=== PATIENT | male | born 1945 | race Caucasian/White ===

== ENCOUNTER 2020-02-09 09:54 | Emergency (ER) | payer OTHER ==
[~2020-02-09] VITALS: Ht 180.3 cm; Wt 77.1 kg
--- NOTE | ~2020-02-09 | EMS ---
[address] [address] EMS Patient Care Report Name: RAGHU PRAKASH Room #: PRE [facility]..#: [id number] Admission: Attend Phys: Discharge: Date of : 45 Report #: [id number] THIS REPORT FOR: //name// Report Transmitted: 02/09/2020 09:28 EMS Care Summary [place], [place]/[facility] Incident [id number] @ 02/09/2020 09:30 Incident Location [address] [place] [address] LIVING Patient RAGHU PRAKASH Male, 74 Years 1945 Patient Address Patient History Dementia,Diabetes,Hypertension (HTN),Depression,Hernia (Abdominal), Patient Allergies No known allergies, Patient Medications Lisinopril, Metformin, Acetaminophen, Seroquel, Mirtazapine, Chief Complaint NONE Disposition Transported No Lights/Mcdaniels Dispatch Reason Sick Person Transported To [facility] Narrative RESPONDED TO [facility]. UPON ARRIVAL PT FOUND SITTING IN CHAIR ALERT TO BASELINE X1. [place] STAFF REPORT PT HAS NOT BEEN EATING WELL FOR THE LAST WEEK AND A PHYSICIAN HAS ORDERS FOR PT TO GET LABS DONE. PT AMBULATES ON HIS OWN TO COT. PT HAS NO COMPLAINTS WHEN ASKED. PT VITALS OBTAINED. PT TRANSPORTED TO [facility] WITH NO CHANGE IN CONDITION. PT WALKS FROM COT TO BED AND HANDRAILS UP. REPORT GIVEN TO NURSE. [address] [address] EMS Patient Care Report Name: RAGHU PRAKASH Room #: PRE [facility]#: [id number] Admission: Attend Phys: Discharge: Date of : 45 Report #: [id number] Initial Vitals @09:46P: 95,R: 16,BP: 137/75,CO: 3,SpO2: 93, @09:43P: 93,R: 16,BP: 134/77,Pain: 0/10,GCS: 14,Glucose: 162,CO: 1,SpO2: 94,Revised Trauma: 12, Assessments @09:39MENTAL:Person Oriented,SKIN:HEENT:Head/Face: No Abnormalities,Neck/Airway: No Abnormalities,LUNG SOUNDS:General: No Abnormalities,Left Upper: No Abnormalities,Right Upper: No Abnormalities,Left Lower: No Abnormalities,Right Lower: No Abnormalities,ABDOMEN:General: No Abnormalities,Left Upper: No Abnormalities,Right Upper: No Abnormalities,Left Lower: No Abnormalities,Right Lower: No Abnormalities,PELVIS//GI:No Abnormalities,EXTREMITIES:Left Arm: No Abnormalities,Right Arm: No Abnormalities,Left Leg: No Abnormalities,Right Leg: No Abnormalities,PULSE:NEURO:No Abnormalities,@09:43MENTAL:Person Oriented,SKIN:No Abnormalities,HEENT:Head/Face: No Abnormalities,Eyes: No Abnormalities,Neck/Airway: No Abnormalities,LUNG SOUNDS:General: No Abnormalities,Left Upper: No Abnormalities,Right Upper: No Abnormalities,Left Lower: No Abnormalities,Right Lower: No Abnormalities,ABDOMEN:General: No Abnormalities,Left Upper: No Abnormalities,Right Upper: No Abnormalities,Left Lower: No Abnormalities,Right Lower: No Abnormalities,PELVIS//GI:No Abnormalities,EXTREMITIES:Left Arm: No Abnormalities,Right Arm: No Abnormalities,Left Leg: No Abnormalities,Right Leg: No Abnormalities,PULSE:NEURO:No Abnormalities, Impression Need for continuous medical supervision Procedures @09:39ALS AssessmentResponse: UnchangedSucceeded Timeline 09:28,Call Received 09:28,Dispatch Notified 09:30,Dispatched 09:31,En Route 09:38,On Scene 09:39,At Patient 09:39,ALS Assessment,Response: UnchangedSucceeded, 09:43,BP: 134/77 M,PULSE: 93,RR: 16 R,SPO2: 94 Ox,ETCO2: ,B,PAIN: 0,GCS: 14, 09:43,Depart Scene 09:46,BP: 137/75 M,PULSE: 95,RR: 16 R,SPO2: 93 Ox,ETCO2: ,BG: ,PAIN: ,GCS: , 09:51,At Destination 10:03,Call Closed [address] [address] EMS Patient Care Report Name: RAGHU PRAKASH Room #: PRE [facility].#: [id number] Admission: Attend Phys: Discharge: Date of : 45 Report #: [id number] Disclaimer v1.1 Copyright 2020 [employer] This EMS Care Summary contains data elements from the applicable legal record (which may be displayed differently). It is designed to provide pertinent information for the following purposes: continuity of care, clinical quality, and state data reporting. The complete legal record is available to ED staff and administrators of the receiving hospital in [facility]'s Patient Tracker. All data is provided "as is."
[~2020-02-09 09:54] MED LIST: ACETAMINOPHEN325 MG PO; B12INJ IM; CELEXA 10 MG TA10 M1 PO; CLEOCIN HCL150 MG PO; METFORMIN HCL500 MG PO; SEROQUEL 25 MG25 M1 PO
[2020-02-09] MEDS ORDERED: LIPITOR40 MG PO (10:04)
[2020-02-09] MEDS ORDERED: LISINOPRIL10 MG PO (10:05)
[2020-02-09] MEDS ORDERED: MIRTAZAPINE15 M2 PO (10:05)
[2020-02-09] MEDS ORDERED: VITAMIN D350 MC3 PO (10:06)
[2020-02-09 10:24] LABS: ABSOLUTE NEUTROPHILS 8.8 thou/uL (1.4-8.2); BASOPHILS 0.3 % (0.0-2.0); EOSINOPHILS 0.4 % (0.0-3.0); HEMATOCRIT 33.4 % (42.0-52.0); HEMOGLOBIN 11.2 gm/dL (14.0-18.0); LYMPHOCYTES 8.5 % (24.0-44.0); MCH 30.5 pg (26.0-34.0); MCHC 33.5 g/dL (28.0-37.0); MCV 90.9 fL (80.0-100.0); MONOCYTES 9.8 % (1.0-8.0); PLATELET COUNT 454 thou/uL (150-400); RBC 3.68 mil/uL (4.50-6.00); RDW 14.2 % (10.5-14.5); WBC 10.8 thou/uL (4.0-11.0)
[2020-02-09 10:39] LABS: CALCIUM 9.2 mg/dL (8.5-10.1); POTASSIUM 4.3 mmol/L (3.5-5.1)
[2020-02-09 10:45] LABS: DIRECT BILIRUBIN 0.2 mg/dL (<0.1-0.2); MAGNESIUM 1.2 mg/dL (1.8-2.4); TOTAL BILIRUBIN 0.4 mg/dL (0.2-1.0); TOTAL PROTEIN 7.4 g/dL (6.4-8.2)
[2020-02-09 13:29] LABS: URINE BLOOD 2+ (Negative); URINE CLARITY SL CLOUDY; URINE COLOR YELLOW; URINE GLUCOSE-RANDOM* NEGATIVE (Negative); URINE KETONES TRACE (Negative); URINE LEUKOCYTES-REFLEX NEGATIVE (Negative); URINE NITRITE-REFLEX NEGATIVE (Negative); URINE PROTEIN (DIPSTICK) 2+ (Negative); URINE SPECIFIC GRAVITY >= 1.030 (1.005-1.035)
[2020-02-09 13:31] LABS: ICTOTEST (BILI CONFIRMATORY) Negative (Negative); URINE BILIRUBIN NEGATIVE (Negative)
[2020-02-09 13:38] LABS: SQUAMOUS >10 Many /LPF (0-3)
[2020-02-09 13:40] LABS: URINE WBC-REFLEX 6-15 Few /HPF (0-5)
[2020-02-09 13:41] LABS: RENAL EPITHELIAL CELLS 0-3 Few /LPF (None Seen); TRANSITIONAL EPITHEL CELL 0-3 Few /LPF (None Seen); WBC CLUMPS Few (None Seen)
[2020-02-09 13:42] LABS: CASTS None Seen /LPF (None Seen); CRYSTALS None Seen /LPF (None Seen)
[2020-02-09] MEDS ORDERED: KEFLEX500 M1 PO (13:45)
[2020-02-09 13:48] VITALS: BP 130/68
== END 2020-02-09 13:48 ==
LOC: ER 09:54
PROVIDERS: Emergency Medicine
DX: N39.0 Urinary tract infection, site not specified (principal); R68.81 Early satiety; F03.90 Unspecified dementia, unspecified severity, without behavioral disturbance, psychotic disturbance, mood disturbance, and anxiety; E11.9 Type 2 diabetes mellitus without complications; I10 Essential (primary) hypertension; F17.210 Nicotine dependence, cigarettes, uncomplicated; Z79.899 Other long term (current) drug therapy

== ENCOUNTER 2020-02-12 12:44 | Inpatient (IN) | payer OTHER ==
[~2020-02-12] VITALS: Ht 180.3 cm; Wt 93.1 kg
[~2020-02-12 12:44] MED LIST changes: +KEFLEX500 M1 PO; +LIPITOR40 MG PO; +LISINOPRIL10 MG PO; +MIRTAZAPINE15 M2 PO; +VITAMIN D350 MC3 PO
[2020-02-12 12:51] VITALS: BP 121/57
[2020-02-12 13:39] LABS: ABSOLUTE NEUTROPHILS 10.2 thou/uL (1.4-8.2); BASOPHILS 0.1 % (0.0-2.0); EOSINOPHILS 0.3 % (0.0-3.0); HEMATOCRIT 32.7 % (42.0-52.0); HEMOGLOBIN 10.7 gm/dL (14.0-18.0); LYMPHOCYTES 7.4 % (24.0-44.0); MCH 29.5 pg (26.0-34.0); MCHC 32.7 g/dL (28.0-37.0); MCV 90.3 fL (80.0-100.0); MONOCYTES 9.5 % (1.0-8.0); PLATELET COUNT 485 thou/uL (150-400); POLYS 82.7 % (36.0-66.0); RBC 3.62 mil/uL (4.50-6.00); WBC 12.3 thou/uL (4.0-11.0)
[2020-02-12 13:50] LABS: CALCIUM 9.5 mg/dL (8.5-10.1); CREATININE 1.1 mg/dL (0.7-1.3); POTASSIUM 4.1 mmol/L (3.5-5.1)
[2020-02-12 13:56] LABS: ALBUMIN 2.9 g/dL (3.4-5.0); DIRECT BILIRUBIN 0.2 mg/dL (<0.1-0.2); TOTAL BILIRUBIN 0.5 mg/dL (0.2-1.0); TOTAL PROTEIN 7.4 g/dL (6.4-8.2)
[2020-02-12 15:56] LABS: URINE BILIRUBIN NEGATIVE (Negative); URINE BLOOD NEGATIVE (Negative); URINE CLARITY CLEAR; URINE COLOR YELLOW; URINE GLUCOSE-RANDOM* NEGATIVE (Negative); URINE KETONES 1+ (Negative); URINE LEUKOCYTES-REFLEX NEGATIVE (Negative); URINE NITRITE-REFLEX NEGATIVE (Negative); URINE PROTEIN (DIPSTICK) TRACE (Negative); URINE SPECIFIC GRAVITY <= 1.005 (1.005-1.035)
[2020-02-12 17:48] LABS: INR 1.1; PROTIME 11.6 Seconds (9.3-11.4)
[2020-02-12 18:07] VITALS: BP 121/64
[2020-02-12 18:16] VITALS: BP 121/64
[2020-02-12 19:22] VITALS: BP 113/66
[2020-02-12 19:40] LABS: FOLIC ACID 19.9 ng/mL (8.6-58.9)
[2020-02-12 19:41] LABS: MAGNESIUM 1.2 mg/dL (1.8-2.4); PHOSPHORUS 3.4 mg/dL (2.5-4.9)
[2020-02-12 23:11] LABS: URINE BILIRUBIN 1+ (Negative); URINE BLOOD TRACE (Negative); URINE CLARITY CLEAR; URINE COLOR YELLOW; URINE GLUCOSE-RANDOM* NEGATIVE (Negative); URINE KETONES 1+ (Negative); URINE LEUKOCYTES NEGATIVE (Negative); URINE NITRITE NEGATIVE (Negative); URINE PROTEIN (DIPSTICK) 1+ (Negative)
[2020-02-12 23:20] LABS: ICTOTEST (BILI CONFIRMATORY) Positive (Negative)
[2020-02-12 23:22] LABS: AMP/METHAMP Negative (Negative); BARBITURATES Negative (Negative); BENZODIAZEPINES Negative (Negative); CASTS None Seen /LPF (None Seen); COCAINE Negative (Negative); METHADONE Negative (Negative); MUCUS None Seen strn/LPF (None Seen); OPIATES Negative (Negative); PCP Negative (Negative); SQUAMOUS None Seen /LPF (0-3); URINE WBC None Seen /HPF (0-5)
[2020-02-12 23:23] LABS: BACTERIA None Seen /HPF (None Seen); URIC ACID CRYSTALS >10 Many /LPF (None Seen); URINE RBC None Seen /HPF (0-2)
--- NOTE | 2020-02-13 04:31 | NUR ---
PT HAS STAT CT CHEST/ABD/PELVIS W/O CONTRAST PER DR TREJO. THIS WAS NOT DONE PRIOR TO BEGINNING OF SHIFT. ONCALL MORTGAGE FUNDER NOTIFIED IF OK TO DO PRIOR TO MORNING. ONCALL MORTGAGE FUNDER AGREED TO HAVE SCAN DONE PRIOR TO CHANGE OF SHIFT. NURSING CALLED CT SCAN IN READINESS TO BRING PT. HOSPITAL WELLNESS COORDINATOR VOICED THAT SCAN HAS TO BE RESCHEDULED TO ABOUT 24HRS AND HAS TO ORDERED WITH IV CONTRAST IN ADDITION TO ORAL CONTRAST TO VIEW MALIGNANCY. MORTGAGE FUNDER ONCKEITH NOTIFIED AND AGREED THAT ORDER BE CHANGED PER REQUEST. CT SCAN REORDERED WITH CONTRAST FOR 12 NOON. WILL CONTINUE TO MONITOR.
[2020-02-13 05:09] LABS: ABSOLUTE NEUTROPHILS 11.7 thou/uL (1.4-8.2); BASOPHILS 0.4 % (0.0-2.0); EOSINOPHILS 0.2 % (0.0-3.0); HEMATOCRIT 32.2 % (42.0-52.0); HEMOGLOBIN 10.4 gm/dL (14.0-18.0); LYMPHOCYTES 5.9 % (24.0-44.0); MCH 29.7 pg (26.0-34.0); MCHC 32.5 g/dL (28.0-37.0); MCV 91.3 fL (80.0-100.0); MONOCYTES 8.7 % (1.0-8.0); PLATELET COUNT 488 thou/uL (150-400); POLYS 84.8 % (36.0-66.0); RBC 3.52 mil/uL (4.50-6.00); RDW 13.9 % (10.5-14.5); WBC 13.7 thou/uL (4.0-11.0)
[2020-02-13 05:26] LABS: ALBUMIN 2.8 g/dL (3.4-5.0); MAGNESIUM 1.3 mg/dL (1.8-2.4); PHOSPHORUS 2.9 mg/dL (2.5-4.9); POTASSIUM 3.9 mmol/L (3.5-5.1)
[2020-02-13 06:18] LABS: TOTAL BILIRUBIN 0.7 mg/dL (0.2-1.0)
--- NOTE | 2020-02-13 06:22 | NUR ---
ASSUMMED PT'S CARE BEGINNING OF HS SHIFT. PT WAS A NEW ADMIT PRIOR TO BEGINNINNG OF SHIFT. HS RN COMPLETED PT'S ADM HX AND ASSESSMENT. PT IS ALERT AND ORIENTED X1. CONFUSED. FORGETFUL. IMPULSIVE. CAN GET AGITATED. PT PROVIDED ADM HX. UNSURE HOW MUCH IS ACCURATE. PT AMBULATING INDPENDENTLY. PT DC'D IV PRIOR TO BEGINNING OF SHIFT. NEW IV STARTED TO LFA 22G. MULTIPLE IV ABX GIVEN THIS SHIFT. SEE EMAR FOR MEDS. PT ON CIWA PROTOCOL. PRN ATIVAN GIVEN THIS SHIFT. PT INCONTINENT OF BLADDER. VOIDED SEVERALLY ALL OVER THE FLOW. SEEMS TO HAVE SOME URGENCY ALSO. PT ELOPEMENT RISK. MONITORING CLOSELY. VOICED WANTING TO SNEAK OUT FOR CIGARETTE. NPO. REODERED CT SCAN WITH CONTRAST PER CT STAFF REQUEST.PT HAS A HARDENER HELPER THAT HAS BEEN ATTACHED HIS CHART INCASE OF DC. WILL CONTINUE TO MONITOR.
--- NOTE | 2020-02-13 07:45 | EKG ---
[facility] [place] [address] ELECTROCARDIOGRAM REPORT Name: RAGHU PRAKASH Room #: 454-P ADM IN M.R.#: [id number] Admission: 02/12/20 Attend Phys: Sheila Yañez MD Discharge: Date of : 45 Report #: [id number] THIS REPORT FOR: cc: Carlos Manuel Sierra MD, Mark A. MD Lundgren, Craig H. MD [facility] ~ THIS REPORT FOR: //name// [facility] ED Test Date: 2020-02-12 Test Time: 13:12:19 Pat Name: RAGHU PRAKASH Department: Room: [facility] Gender: M Silver Miner: [facility] : 1945 Requested By: Kendell Jimenez Order Number: [id number] : Thiago Aguirre Measurements Intervals [place] Rate: 97 P: 28 WI: 164 QRS: -38 QRSD: 98 T: 60 QT: 342 QTc: 435 Interpretive Statements Sinus rhythm Atrial premature complex Left axis deviation Borderline T wave abnormalities Compared to ECG 06/25/2008 18:46:16 Atrial premature complex(es) now present Left-axis deviation now present Sinus tachycardia no longer present T-wave abnormality still present Electronically Signed On 02-13-2020 7:45:21 TRAWL NET MAKER by Thiago Aguirre [email or web address] <ELECTRONICALLY SIGNED> By: Thiago Aguirre MD, FACC 02/13/20 0745 11 Thiago Aguirre MD, FAC /EPI
[2020-02-13 08:00] VITALS: BP 138/46
--- NOTE | 2020-02-13 13:34 | NUR ---
Assumed pt care at 7am.Pt in and out of bed wandering in the hallways.Assisted back to room several times but refused to stay in bed and urinated allover the floor.Lorazepam iv given as ordered.Dr Costello aware of pt situation.Pt pulled piv and was replaced by iv team.Pt in bed sleeping at present afer complete bed change.Will continue to monitor.
--- NOTE | 2020-02-13 16:23 | NUR ---
PT ADMITTED RLATED TO NECK MASS. CM REVIEWED CAHRT AND SPOKE WITH CARE TEAM. PT'S SPOUSE MERCEDEZ PRAKASH CALLED THIS DAY AND INDICATED THAT SHE IS THE DPOA WE HAVE HER DTR LISTED DPOA ALL OVER THE CHART. CM TO CLARIFY. SHE INDICATED THAT PT RESIDES AT [facility]. CM TO CLARIFY PRIOR LEVEL OF CARE [place], [place], SNF, LTC. PT HAD BEEN USING A FWW TO ASSSIT WITH MOBILITY SINCE ADMISSION AND HAD BEEN WANDERING AROUND UNIT THIS DAY. DR. BARROW HAD SEEN PT AND HAD ROSAURA MENTION OF BIOPSY IN IR. CM TO FOLLOW INDICATED WITH DC PLANNING.
[2020-02-13 19:50] VITALS: BP 119/67
[2020-02-13 23:06] LABS: HAV IgM AB (ANTI-HAV IgM) Negative (Negative); HEPATITIS B SURFACE AG Negative (Negative); HEPATITIS C VIRUS AB <0.1 (0.0-0.9)
[2020-02-14] VITALS (20 sets, daily range): BP systolic 68–173; BP diastolic 43–137
[2020-02-14 00:06] LABS: GLYCOHEMOGLOBIN (HGB A1C) 6.1 % (4.8-5.6)
--- NOTE | 2020-02-14 07:27 | NUR ---
Assumed pt care at 1900. A/OX2-3 very irritable/agitated with staff during cares. Asking numerous times for food and doesn't understand why he can't eat when explained to why he's NPO. Pt's impulsive on and off and keeps trying to get up,Top Polisher Dora contacted for med orders and orders implemented,with some relief noted. Pt on CIWA protocol score 9. Pt's NPO,oral suction set-up for increased oral secretions but pt resistant to have suction done. Pt's supposed to get CT of abd/chest/pelvis done still. Pt pulled IV out,reinserted on LUE with one attempt, IVF/Abts infusing w/o problems. Incontinent of bladder at [facility]. Fall precautions in place. Pt to be transfered to this shift.
--- NOTE | 2020-02-14 07:29 | HC ---
[facility] [place] [address] CONSULTATION Name: RAGHU PRAKASH Room #: 205-P [facility] IN .R.#: [id number] Admission: 02/12/20 Attend Phys: Sheila Yañez MD Discharge: Date of : 45 Report #: [id number] THIS REPORT FOR: cc: Carlos Manuel Sierra MD, Mark A. MD McKittrick, Richard James MD ~ REASON FOR CONSULTATION: Left neck mass on exam and CAT scan. HISTORY OF PRESENT ILLNESS: The patient is a 74-year-old man who may have early dementia, who is probably not a reliable historian, cannot tell me how much his weight is lost, but does talk about trouble with food or liquids pooling ____ with some dysphagia. In the CAT scan here, he was noted to have a left neck mass that is effaced in the submandibular gland medially and posteriorly with IJ compression. On the ENT doctor's exam, they showed that in the upper hypopharynx, there was a ballottable fullness on the left lateral pharyngeal wall obscuring the left piriform sinus. There appears to be some ulcerations on the posterior inferior aspect of this mass. The true vocal cords moved normally. No epiglottic edema or glottic edema was noted. He could not visualize the postcricoid space. The patient does seem to think he has lost weight. He denies really any significant pain, new breathing troubles, diarrhea, constipation, urinary troubles, skin rashes. PAST MEDICAL HISTORY: Appears to be notable for what sounds like diabetes, early dementia, hypertension, tobacco dependence, alcohol dependence. SOCIAL HISTORY: The patient is a resident of [facility]. It sound like he has not drank for at least some time, but still smoking up until prior to admission and has tried smoking here. FAMILY HISTORY: Noncontributory, SHONDA is ex-. PHYSICAL EXAMINATION: GENERAL: The patient appears his stated age. Mood pleasant, conversant. VITAL SIGNS: Height is 5 feet 11 inches, 180.3 cm. Weight 164 pounds or 74.6 kg. LUNGS: Have some central rhonchi that clear with cough. HEART: Regular rate. NECK: Does have the fullness in the left upper neck that appears to feel about 3-4 cm. ABDOMEN: Slightly obese, nontender. No masses. EXTREMITIES: Without clubbing, cyanosis. There is some trace edema. LABORATORY DATA: Here notable for slightly low albumin, BUN of 20, creatinine [address] [address] CONSULTATION Name: RAGHU PRAKASH Room #: 205-P [facility] IN [facility]#: [id number] Admission: 02/12/20 Attend Phys: Sheila Yañez MD Discharge: Date of : 45 Report #: [id number] 1.0. Transaminases normal. Albumin 2.8. White count 13.7, hemoglobin 10.4, platelets 488. B12, folate, TSH adequate. Hepatitis markers pending. MEDICATIONS: At this time in the hospital currently include insulin on a sliding scale, metronidazole q. 8 IV, Zosyn IV q. 8, vancomycin q. 12, ipratropium and albuterol respiratory therapy q. 4, flumazenil 0.2 mg p.r.n., lorazepam 1 mg q. 4 IV p.r.n., famotidine 20 mg daily IV. ASSESSMENT AND PLAN: 1. Left neck mass on CAT scan and on ENT exam and on physical exam externally, most suspicious for squamous cell cancer, but would need to await final tissue diagnosis to make sure this is cancer of what subtype. We will also need to clarify social situations as to whether the patient has support and understanding to undertake therapy if this is a malignancy. 2. Hypertension. Meds per others. 3. Possible respiratory infection and neck infection. Continue with multiple antibiotics. 4. Diabetes. Sliding scale insulin and Accu-Cheks. 5. Tobacco dependence. Encouraged cessation. 6. Alcohol dependence. Encouraged cessation. We will follow with you. <ELECTRONICALLY SIGNED> By: Olman Villafana MD 02/14/20 0729 [phone] Olman Villafana MD /nt
[2020-02-14 11:16] LABS: BE(vivo) -9.1 mmol/L (-2 to +3); HCO3 23.7 mmol/L (22.0-26.0); PO2 72.8 mmHg (80.0-100.0); sO2 84.1 % (92.0-98.0)
[2020-02-14 11:18] LABS: PCO2 97.6 mmHg (35.0-45.0); pH 7.004 (7.360-7.450)
--- NOTE | 2020-02-14 11:29 | NUR ---
PATIENT TRANSFERRED TO CCU THIS MORNING, CONFUSED AND IMPULSIVE. TACHYCARDIC BUT OTHER VITALS STABLE. DR. POTTS PAGED AND ORDERS RECEIVED FOR RESTRAINTS AND LUJAN. PRN ANTI-ANXIETY ADMINISTERED. PATIENT GOT DROWSY AND STARTED DESATURATING AND O2 PLACED ON PER MD. DR. POTTS ROUNDED AND AFTER THAT PATIENT CONTINUED TO DESATURATE, PLACED ON FACE SHIELD AND DR. POTTS NOTIFIED, ABG OBTAINED AND PER DR. POTTS PATIENT PLACED ON BIPAP. DR. POTTS ALSO ABLE TO TALK TO DPOA AND CODE STATUS ADDRESSED. PATIENT PLACED ON BIPAP BY RT MERCEDEZ. WILL CONTINUE TO MONITOR CLOSELY.
[2020-02-14 11:56] LABS: % SATURATION 7 % (20-39); IRON 10 ug/dL (65-175); TIBC 153 ug/dL (250-450)
[2020-02-14 13:39] LABS: BE(vivo) -9.6 mmol/L (-2 to +3); HCO3 28.5 mmol/L (22.0-26.0); PO2 87.6 mmHg (80.0-100.0); sO2 81.7 % (92.0-98.0)
[2020-02-14 13:41] LABS: PCO2 194.7 mmHg (35.0-45.0); pH 6.784 (7.360-7.450)
--- NOTE | 2020-02-14 16:06 | PATH ---
[facility] [address] [place] [address] PATHOLOGY RPT PROCEDURE Name: RAGHU PRAKASH Room #: 205-P ADM IN .R.#: [id number] Admission: 02/12/20 Date of : 45 Discharge: Report #: [id number] Path Case #: [id number] Note [facility] Accession Number: [id number] TESTS RESULT FLAG UNITS REF RANGE LAB Clinician Provided Cytology Information No. of containers..01 Other (Miscellaneous) Source: LT NECK MASS DIAGNOSIS: 02 LEFT NECK MASS, FINE NEEDLE ASPIRATION NEGATIVE FOR MALIGNANT EPITHELIAL CELLS. CONSISTENT WITH AN ABSCESS. CELLULAR DEGENERATION IS PRESENT. THIS INTERPRETATION INCLUDES EVALUATION OF A CELL BLOCK. SCANT SKELETAL MUSCLE FRAGMENTS ALONG WITH ACUTE INFLAMMATION. Pathologist ICD10: 02 L02.11 Signed out by: 02 Elva Doss MD, Pathologist NPI- [id number] Performed by: 01 Renetta Gutierrez State'S Attorney ([facility]) Gross description: 01 25ML, HAZY RED, 2FX 2AD /LCS 02/13/2020 1716 Local FLAG LEGEND: L-Low Normal,H-High Normal,LL-Alert Low,HH-Alert High <-Panic Low,>-Panic High,A-Abnormal,AA-Critical Abnormal Performed at: [address] [facility] [address] [place] [address] Emiliano Zazueta MD, [address] [address] Elva Doss MD, Specimen Comment: A courtesy copy of this report has been sent to [phone], [phone] Specimen Comment: [phone], Specimen Comment: [id number] Specimen Comment: Report sent to DR GASTELUM,DR BHARDWAJ / DR TREJO Performed at: [address], [place], [place] [id number] [address] [address] PATHOLOGY RPT PROCEDURE Name: RAGHU PRAKASH Room #: 205-P [facility] IN M.R.#: [id number] Admission: 02/12/20 Date of : 45 Discharge: Report #: [id number] Path Case #: [id number] SD Emiliano Zazueta [place] Phone: [phone]
--- NOTE | 2020-02-14 16:26 | NUR ---
PATIENT CONTINUES TO BE ON BIPAP AND IS DROWSY, ABG RESULT REPORTED TO DR. POTTS. THIS AFTERNOON DR. GASTELUM ROUNDED AND TALKED WITH DR. POTTS OVER THE PHONE AND ALSO WITH THE DPOA OVER THE PHONE REGARDING DOING AN OPEN BIOPSY TOMORROW.
[2020-02-14 17:23] LABS: BE(vivo) -8.5 mmol/L (-2 to +3); HCO3 24.3 mmol/L (22.0-26.0); PCO2 100.9 mmHg (35.0-45.0); PO2 238.6 mmHg (80.0-100.0); pH 6.999 (7.360-7.450)
--- NOTE | 2020-02-14 18:34 | NUR ---
PATIENT TAKEN TO O.R AT 1825 BY PHARMACY INFORMATICS SPECIALIST ACCOMPANIED BY Caio
[2020-02-15] VITALS (90 sets, daily range): BP systolic 78–156; BP diastolic 44–117
--- NOTE | 2020-02-15 00:21 | NUR ---
ASSUME CARE OF PATIENT FROM OR AT 2030. PATIENT STILL NOT RESPONSIVE. NO SEDATION AT THIS TIME. BP LOW, URINE OUTPUT VERY LOW. Lionel HOOVER NOTIFIED. ORDERS RECEIVED FOR 1 TIME FLUID BOLUS. MONITORING CLOSELY. DR GARCIA TALKED TO BEFORE PATIENT ARRIVED. ORDERS FOR LABS, CXR, LEVO, PAIN AND ANXIETY MEDS OBTAINED. PATIENT STARTING TO BE MORE AROUSABLE. SQUEEZED THIS RN'S HAND. IS MOVING IN BED. RESTRAINTS REMAIN IN PLACE TO PROTECT TRACH. NO FAMILY HAS CALLED. POC GOALS ESTABLISHED. WILL CONTINUE TO MONITOR.
[2020-02-15 05:35] LABS: BE(vivo) -9.3 mmol/L (-2 to +3); HCO3 17.3 mmol/L (22.0-26.0); PCO2 40.4 mmHg (35.0-45.0); PO2 146.8 mmHg (80.0-100.0); sO2 98.5 % (92.0-98.0)
[2020-02-15 05:36] LABS: pH 7.249 (7.360-7.450)
[2020-02-15 08:29] LABS: BASOPHILS 0.5 % (0.0-2.0); HEMATOCRIT 30.9 % (42.0-52.0); HEMOGLOBIN 9.6 gm/dL (14.0-18.0); LYMPHOCYTES 5.5 % (24.0-44.0); MCH 29.3 pg (26.0-34.0); MCV 94.5 fL (80.0-100.0); MONOCYTES 7.7 % (1.0-8.0); PLATELET COUNT 422 thou/uL (150-400); POLYS 86.3 % (36.0-66.0); RBC 3.26 mil/uL (4.50-6.00); RDW 15.2 % (10.5-14.5); WBC 13.9 thou/uL (4.0-11.0)
[2020-02-15 08:37] LABS: HCO3 16.5 mmol/L (22.0-26.0); PO2 34.5 mmHg (80.0-100.0); pH 7.245 (7.360-7.450)
[2020-02-15 08:38] LABS: BE(vivo) -10.1 mmol/L (-2 to +3); sO2 57.1 % (92.0-98.0)
[2020-02-15 08:54] LABS: APTT 29.4 Seconds (24.5-32.8); FIBRINOGEN 557.7 mg/dL (210-360); INR 1.4; PROTIME 14.7 Seconds (9.3-11.4)
[2020-02-15 09:06] LABS: ALBUMIN 2.2 g/dL (3.4-5.0); CALCIUM 7.8 mg/dL (8.5-10.1); POTASSIUM 3.6 mmol/L (3.5-5.1); TOTAL BILIRUBIN 0.3 mg/dL (0.2-1.0); TOTAL PROTEIN 6.2 g/dL (6.4-8.2)
--- NOTE | 2020-02-15 13:44 | NUR ---
VASCULAR ACCESS CONSULTED [facility] CVAD, SPOKE WITH DR GARCIA REGARDING PT HAS EDEMA OF NECK,AND NEW TRACH WITH DRAINAGE, PICC WOULD BE SAFER. DR GARCIA AGREED. DAVIDE BASILIC WAS WIDELY PATENT WITH USG. 5FR TL POWER PICC TRIMMED TO 38CM INSERTED TO 0CM. PT TOLERATED WELL. STAT CXR ORDERED.
--- NOTE | 2020-02-15 14:30 | NUR ---
CXR CONFIRMED PLACEMENT OF PICC AT [facility], RELEASED FOR IMMEDIATE USE PER PROTOCOL TO OSMAR SILAV
[2020-02-15 16:17] LABS: CALCIUM 7.8 mg/dL (8.5-10.1); POTASSIUM 3.6 mmol/L (3.5-5.1)
--- NOTE | 2020-02-15 20:16 | NUR ---
ASSUMED CARE AT 0700. PATIENT PROGRESSING SLOWLY PROGRESSING TOWARDS THE PLAN OF CARE.
[2020-02-16] VITALS (95 sets, daily range): BP systolic 86–142; BP diastolic 36–63
--- NOTE | 2020-02-16 04:35 | NUR ---
This RN to bedside at 190. Patient extremely aggitated, restless, and trying to remove trach. This RN spoke to Dr. Mccracken regarding behavior at 1999. Day shift rn also reported low urine output throughout shift. I spoke to Dr. Mccracken about this as well. He ordered 2 L lactated ringers bolus and 100 mg IV lasix push. Urine output has improved. Dr. Mccracken also had this RN start patient on a Versed gtt and fentanyl gtt. Since, patient has been much more calm but easily aroused, and still requires PRN Ativan occasionally. At 2099, patient had two runs of vtach about 2 minutes apart. They were both 8 beatsof vtach and patient came out of them. This around called Abeba Jolly NP at 2129 regarding event. Discussed labs and got a stat magnesium. 4mg Mg were replaced. Will monitor labs in the AM. Since replacing, no ventricular rhythms occured. Patient in NSR. Will continue to monitor.
[2020-02-16 05:24] LABS: HEMATOCRIT 30.4 % (42.0-52.0); HEMOGLOBIN 9.7 gm/dL (14.0-18.0); MCH 29.6 pg (26.0-34.0); MCHC 31.8 g/dL (28.0-37.0); MCV 92.9 fL (80.0-100.0); RBC 3.28 mil/uL (4.50-6.00); RDW 14.7 % (10.5-14.5); WBC 16.2 thou/uL (4.0-11.0)
[2020-02-16 06:39] LABS: CALCIUM 8.4 mg/dL (8.5-10.1); CREATININE 3.3 mg/dL (0.7-1.3)
--- NOTE | 2020-02-16 10:10 | 2DMMODE ---
[facility] [place] [address] 2 D/M-MODE ECHOCARDIOGRAM Name: RAGHU PRAKASH Room #: 247-P ADM IN M.R.#: [id number] Admission: 02/12/20 Attend Phys: Sheila Yañez MD Discharge: Date of : 45 Report #: [id number] THIS REPORT FOR: cc: Carlos Manuel Sierra MD, Mark A. MD Lundgren, Craig H. MD [facility] ~ APPROVED REPORT Study performed: 02/16/2020 09:44:12 EXAM: Comprehensive 2D, Doppler, and color-flow Echocardiogram Patient Location: ICU Room #: [facility] Status: routine BSA: 1.91 HR: 72 bpm BP: 117/48 mmHg Rhythm: NSR Other Information Study Quality: Technically DifficultTechnically Limited Technically limited study due to lung disease, inability to position patient, patient on ventilator. Indications Arrhythmia COPD Diabetes 2D Dimensions LVOT Diam: 18.34 (18-24mm) Aortic Valve AoV Peak Herbert.: 2.66 m/s AO Peak Gr.: 28.26 mmHg LVOT Max P.57 mmHg AO Mean Gr.: 15.07 mmHg LVOT Mean P.47 mmHg AO V2 Mean: 1.82 m/s LVOT Max V: 0.80 m/s AO V2 VTI: 56.24 cm LVOT Mean V: 0.57 m/s DUANE (VTI): 0.91 cm2 LVOT V1 VTI: 19.28 cm DUANE Vmax: 0.80 cm2 SV (LVOT): 50.91 mL Left Ventricle [facility] [address] [place] [address] 2 D/M-MODE ECHOCARDIOGRAM Name: RAGHU PRAKASH Room #: 247-P ADM IN M.R.#: [id number] Admission: 02/12/20 Attend Phys: Sheila Yañez, Discharge: Date of : 45 Report #: [id number] The left ventricle is normal size. Regional wall motion is grossly normal. There is normal left ventricular wall thickness. The left ventricular systolic function is normal. The left ventricular ejection fraction is within the normal range. LVEF is 55-60%. This study is not technically sufficient to allow evaluation of the LV diastolic function. Right Ventricle The right ventricle is normal size. The right ventricular systolic function is normal. Atria The left atrium size is normal. The right atrium size is normal. Aortic Valve Aortic valve is calcified, probably moderately stenotic. Mild aortic regurgitation. Moderate aortic stenosis. Mitral Valve The mitral valve is normal in structure. There is no mitral valve regurgitation noted. No evidence of mitral valve stenosis. Tricuspid Valve The tricuspid valve is normal in structure. There is no tricuspid valve regurgitation noted. Pulmonic Valve The pulmonary valve is normal in structure. There is no pulmonic valvular regurgitation. Great Vessels The aortic root is normal in size. IVC is dilated and collapses <50% with inspiration. Pericardium There is no pericardial effusion. <Conclusion> Very limited study including Doppler evaluation The left ventricular systolic function is normal. Regional wall motion is grossly normal. LVEF is 55-60%. Aortic valve is calcified, probably moderately stenotic. Mild aortic regurgitation. No reliable transaortic velocities obtained. [facility] [address] [place] [address] 2 D/M-MODE ECHOCARDIOGRAM Name: OLINDARAGHU Mo Room #: 247-P [facility] IN [facility]#: [id number] Admission: 02/12/20 Attend Phys: Sheila Yañez, Discharge: Date of : 45 Report #: [id number] The mitral valve is normal in structure. No mitral valve regurgitation noted. Pulmonary artery pressure could not be reliably ascertained. There is no pericardial effusion. <ELECTRONICALLY SIGNED> By: Thiago Aguirre MD, FACC 02/16/20 1010 1010 1010 Thiago Aguirre MD, FACC /INF
--- NOTE | 2020-02-16 10:24 | NUR ---
Pt starting day 3 NPO. Severe protein calorie malnutrition critieria met. May want to consider start of TPN if unable to provide enteral access. Recommend standard tpn to reach final goal 80ml/hr. Consult pharmacy to manage if tpn started.
--- NOTE | 2020-02-16 12:18 | EKG ---
[facility] [place] [address] ELECTROCARDIOGRAM REPORT Name: RAGHU PRAKASH Room #: 247-P ADM IN M.R.#: [id number] Admission: 02/12/20 Attend Phys: Sheila Yañez MD Discharge: Date of : 45 Report #: [id number] THIS REPORT FOR: cc: Carlos Manuel Sierra MD, Mark A. MD Santiago, Patrick MD [facility] ~ THIS REPORT FOR: //name// [facility] Test Date: 2020-02-16 Test Time: 07:58:49 Pat Name: RAGHU PRAKASH Department: Room: 247 P Gender: M Kiss Mixer: SBKOURTNEY : 1945 Requested By: Joie Mills Order Number: [id number] : Domingo Cobb Measurements Intervals [place] Rate: 75 P: 28 HI: 174 QRS: -16 QRSD: 100 T: -26 QT: 414 QTc: 463 Interpretive Statements Sinus rhythm Borderline left axis deviation Anteroseptal infarct, age indeterminate Compared to ECG 02/12/2020 13:12:19 Myocardial infarct finding now present Atrial premature complex(es) no longer present T-wave abnormality no longer present Electronically Signed On 02-16-2020 12:18:33 PRINTER HELPER by Domingo Cobb [email or web address] <ELECTRONICALLY SIGNED> By: Domingo Cobb MD, FACC 02/16/20 [phone] Domingo Cobb MD, FAC /EPI
--- NOTE | 2020-02-16 20:31 | NUR ---
0730-ASSUMED CARE OF PT.--VW 1030-BASILIO POTTS & RADHA IN TO SEE.--VW 1215-A= INTO SEE.--VW 1300- IN EARLIER.--VW PT'S EX MERCEDEZ PRAKASH TO BRING COPY OF DPOA PAPERWORK TO SECURITY.--VW
[2020-02-17] VITALS (57 sets, daily range): BP systolic 94–153; BP diastolic 40–93
[2020-02-17 05:26] LABS: HEMOGLOBIN 7.8 gm/dL (14.0-18.0); MCH 29.9 pg (26.0-34.0); MCHC 32.3 g/dL (28.0-37.0); MCV 92.4 fL (80.0-100.0); RBC 2.6 mil/uL (4.50-6.00); RDW 14.7 % (10.5-14.5); WBC 11.9 thou/uL (4.0-11.0)
[2020-02-17 05:35] LABS: CALCIUM 6.9 mg/dL (8.5-10.1); CREATININE 3.2 mg/dL (0.7-1.3)
[2020-02-17 13:12] LABS: % SATURATION 59 % (20-39); IRON 51 ug/dL (65-175); TIBC 87 ug/dL (250-450)
[2020-02-17 13:50] LABS: FOLIC ACID 10.3 ng/mL (8.6-58.9)
--- NOTE | 2020-02-17 15:09 | NUR ---
chart review. unable to visit with khadra. cm spoke with dpjoseph manzano ex via phone call. has trach. cm education rt ltca if needed for dc needs. he has trach, he will not be able to return to [facility] with trach. cm education on david, [facility] and [facility] ltac. "thank you, and promise would be super close to me and i will let kids know this, thank you have and good weekend"/natacha. will cont following as needed for dc needs.
--- NOTE | 2020-02-17 19:47 | NUR ---
assumed care of ot at 0700, pt is a GCS of 9, pt is on sedation for vent management. pt on fentanyl and fernando the vent. Pt started on TF today. Pt with low urine output nad low pottasium, professional driver paged and awaiting for a call back. pt with low temp and bare hugger placed on pt. family updated on pt condition. pt resting at this time with eyes closed.
[2020-02-18] VITALS (99 sets, daily range): BP systolic 96–177; BP diastolic 38–93
--- NOTE | 2020-02-18 00:30 | NUR ---
Nurse talked with Dr. Johnson from [facility] in regards to no urine output the last few hours. Physician expressed it will be reevaluated in the morning. To continue to monitor patient status.
[2020-02-18 03:21] LABS: HEMATOCRIT 27.7 % (42.0-52.0); HEMOGLOBIN 8.9 gm/dL (14.0-18.0); MCH 29.5 pg (26.0-34.0); MCHC 31.9 g/dL (28.0-37.0); MCV 92.5 fL (80.0-100.0); RDW 14.8 % (10.5-14.5); WBC 11.7 thou/uL (4.0-11.0)
[2020-02-18 03:37] LABS: ALBUMIN 1.8 g/dL (3.4-5.0); PHOSPHORUS 5.8 mg/dL (2.5-4.9)
[2020-02-18 03:40] LABS: CREATININE 4.7 mg/dL (0.7-1.3); POTASSIUM 4.1 mmol/L (3.5-5.1)
[2020-02-18 03:46] LABS: CALCIUM 7.8 mg/dL (8.5-10.1)
[2020-02-18 05:16] LABS: BE(vivo) -12.8 mmol/L (-2 to +3); HCO3 13.9 mmol/L (22.0-26.0); PCO2 34.9 mmHg (35.0-45.0); PO2 106.7 mmHg (80.0-100.0); sO2 96.9 % (92.0-98.0)
[2020-02-18 05:17] LABS: pH 7.219 (7.360-7.450)
--- NOTE | 2020-02-18 11:49 | NUR ---
ASSUMED CARE @ 0700 02/18/20, PT ASSESSMENTS AND VS COMPLETE PER ICU PRT. @ 0831 DR LAWRENCE @ BEDSIDE, UPDATE GIVEN, INFORMED OF MINIMAL URINE OUTPUT (NO ORDERS RECIEVED) AND FLUIDS CHANGE TO BICARB DUE TO ABGS (ORDERS RECIEVED) @ 0931 DR GASTELUM (ENT) @ BEDSIDE NO NEW ORDERS RECIEVED.
[2020-02-19] VITALS (81 sets, daily range): BP systolic 81–164; BP diastolic 36–83
[2020-02-19 06:16] LABS: HEMATOCRIT 27.5 % (42.0-52.0); HEMOGLOBIN 9.2 gm/dL (14.0-18.0); MCH 30.1 pg (26.0-34.0); MCHC 33.3 g/dL (28.0-37.0); MCV 90.3 fL (80.0-100.0); RBC 3.05 mil/uL (4.50-6.00); RDW 14.7 % (10.5-14.5); WBC 9.1 thou/uL (4.0-11.0)
[2020-02-19 06:21] LABS: CALCIUM 8.5 mg/dL (8.5-10.1); CREATININE 5.4 mg/dL (0.7-1.3); POTASSIUM 3.9 mmol/L (3.5-5.1)
--- NOTE | 2020-02-19 09:42 | NUR ---
Patient not progressing towards plan of care as evidence by increasing renal function levels, decreasing urine output, increased restlessness with lightened sedation with increased tachycardia, tachypnea, and hypertension. Plan of care is to monitor patient urine output, attempt sedation vacation, monitor vital signs, and monitor incision.
--- NOTE | 2020-02-19 18:47 | NUR ---
TUBE FEEDING RESTARTED PER DR. POTTS ORDER. VITAL AF RESTARTED AT 1400. AT 1800 RESIDUAL CHECKED AND WAS 45.
--- NOTE | 2020-02-19 19:38 | NUR ---
PT IS NOT PROGRESSING TOWARDS GOALS FOR DISCHARGE. PT HAS LOW URINE OUTPUT AND DR. LAWRENCE, RENAL IS AWARE. 100 OF IV LASIX GIVEN X1 ONE TODAY WITH ONLY 100CC OF URINE OUTPUT. PT REMAINS TRACHED ON THE VENTILATOR. PT IS VERY AGITATED WHEN SEDATION IS TURNED DOWN. PT HAS NOT NEEDED ANY PRESSORS FOR BP SUPPORT TODAY.
[2020-02-20] VITALS (35 sets, daily range): BP systolic 107–180; BP diastolic 36–76
--- NOTE | 2020-02-20 06:41 | NUR ---
ASSESSMENT DOCUMENTED.PT REMAINS ON LIGHT SEDATION AND VENT MANAGEMENT WITH FENTANYL AND VERSED.REMAINS ON TRACH.NO CHNAGES MADE ON SETTING OVERNIGHT.PT SR/STACHY W/PVCS ON MONITOR.HAD 4 BEATS RUNS OF NON-SUSTAINED VTACH.PT NOT SYMPTOMATIC.URINE OUTPUT REMAINS LOW.RENAL AWARE.CREATININE TRENDING UP SEE LABS.REMAINS AFEBRILE.NO SIGNIFICANT CHANGES NOTED OVERNIGHT.WILL CONT TO MONITOR PER POC.
[2020-02-20 06:48] LABS: CALCIUM 8.5 mg/dL (8.5-10.1); CREATININE 6.1 mg/dL (0.7-1.3); PHOSPHORUS 7.1 mg/dL (2.5-4.9); POTASSIUM 4.6 mmol/L (3.5-5.1)
[2020-02-20 10:24] LABS: BE(vivo) -5.4 mmol/L (-2 to +3); HCO3 20.8 mmol/L (22.0-26.0); PCO2 43.7 mmHg (35.0-45.0); PO2 82.7 mmHg (80.0-100.0); sO2 95.1 % (92.0-98.0)
[2020-02-20 10:25] LABS: pH 7.296 (7.360-7.450)
--- NOTE | 2020-02-20 12:05 | NUR ---
cm received phone call from kiln head house operator wanting to know if know how to set up ku body program, family has requested this. cm spoke with cm team and getting ku contact information and will call back with information.
--- NOTE | 2020-02-20 12:29 | NUR ---
demi willed body program, call [phone], then to report call [phone]. neema called spoke with feed house supervisor who will call and ask demi to speak with pt family. will cont following as needed for dc needs.
--- NOTE | 2020-02-20 13:00 | NUR ---
Aida Xi Abraham's sister called to say good bye to her brother by phone phome held to patient's ear. The sister spoke to her brother.
--- NOTE | 2020-02-20 19:05 | NUR ---
PT ON VENT UNITL 1727. FENTYNL GTT FOR COMFORT. TRACH IN PLACE. PINROSE DRAIN DC'D BY PHYSICIAN, SUTURES IN PLACE AND WELL APPROXIMATED, NO SIGNS OF BLEEDING OR INFECTION. DOBOFF TUBE/TF DC'D. RESTRAINTS DC'D. AFEBRILE, NO BM, OLIGURIC. PT NOW ON PALLIATIVE CARE. PT IS TO BE TRANSFERED TO [facility] [employer] party supplies & rentals AND [facility] FOR RESEARCH PURPOSES ONCE DECESED. PROVIDER/FAMILY IN AGREEMENT TO BEGIN PALLIATVE CARE. NOW ON 2L NC FOR COMFORT. PT AND FAMILY HAVE BEEN UPDATED AND EDUCATED ON POC. PT NOT PROGRESSING TOWARDS POC.
--- NOTE | 2020-02-21 03:27 | NUR ---
>>>1900 ABEDSIDE SHIFT REPORT RECEIVED, CARE ASSUMED. >>>ASSESSMENTS DONE, PT CONTINUES ON PALLIATIVE CARE. ON 2L NC FOR COMFORT. NO RESPIRATORY DISTRESS NOTED, FENTANYL DRIP TITRATED PER PROTOCOL. NO PAIN OR DISCOMFORT NOTED. >>>0200 RESPIRATORY DISTRESS NOTED. MORPHINE ADMINISTERED PER ORDER. WILL CONTINUE TO MONITOR.
--- NOTE | 2020-02-21 08:21 | HC ---
[facility] [place] [address] CONSULTATION Name: RAGHU PRAKASH Room #: 247-P [facility] IN .R.#: [id number] Admission: 02/12/20 Attend Phys: Sheila Yañez MD Discharge: Date of : 45 Report #: [id number] THIS REPORT FOR: cc: Carlos Manuel Sierra MD, Mark A. MD Al-Absi,Marbin Hameed MD ~ REASON FOR CONSULTATION: Elevated creatinine. REASON FOR PRESENTATION: Dysphagia. HISTORY OF PRESENT ILLNESS: This is obtained from the medical chart. The patient is not able to provide me with any history. He presented from his nursing facility because of significant dysphagia for the last few weeks associated with fullness of the left side of the neck. The patient was taken to the OR because of a very large left parapharyngeal mass. Unfortunately, the patient has developed significant hypotension and his creatinine had been rising with the coinciding with hypotension. His blood pressure was at times all the way down to the 90/40. He also had a CT with contrast. With the above-mentioned, the patient's creatinine had continued to rise. He also had some nonsustained ventricular tachycardia with moderate aortic stenosis. Because of the worsening of the patient's renal function, I was consulted to manage his acute kidney injury. REVIEW OF SYSTEMS: Unobtainable given the patient's current mental status, he is currently intubated. ALLERGIES: METFORMIN. HOME MEDICATIONS: 1. Atorvastatin. 2. Lisinopril. 3. Mirtazapine. FAMILY HISTORY: Unobtainable given the patient's current mental status. REVIEW OF SYSTEMS: Unobtainable given the patient's current mental status. SOCIAL HISTORY: Unobtainable given the patient's current mental status. PHYSICAL EXAMINATION: VITAL SIGNS: Blood pressure is 145/65, pulse rate is 100, respiratory rate is 11. HEAD AND NECK: No jugular venous distention. There is dressing applied over the left side of the neck. CHEST: Minimal bilateral crackles. [facility] [address] [place] [address] CONSULTATION Name: RAGHU PRAKASH Room #: 247-P [facility] IN [facility].#: [id number] Admission: 02/12/20 Attend Phys: Sheila Yañez MD Discharge: Date of : 45 Report #: [id number] CARDIOVASCULAR: No rub. ABDOMEN: Soft, nontender. LOWER EXTREMITIES: No edema. LABORATORY DATA: From today revealed that his creatinine is down to 3.2 from 3.3. Sodium is 132, potassium is 3.0, BUN is 37. White blood cell count is 11.9. Initial pathology report for the needle aspiration is consistent with an abscess. IMPRESSION AND PLAN: 1. Acute kidney injury due to hypotension and contrast nephropathy. 2. Left neck abscess, post-needle aspiration. 3. History of alcohol abuse. 4. Hyponatremia. 5. Aortic stenosis. 6. Nonsustained ventricular tachycardia. 7. The patient's acute kidney injury is ____ the hypotension and the contrast he received. He had significant ____ this seems to be improving. 8. Urine output is marginal, but it has picking up. 9. Continue with IV fluid. 10. Continue to treat his abscess. 11. Avoid further diuresis. 12. Daily electrolytes panel. 13. Avoid hypertension. 14. Avoid nephrotoxins. 15. No further diuresis. 16. We will continue to follow during his hospital stay. <ELECTRONICALLY SIGNED> By: Marbin Lester MD 02/21/20 0821 [id number] Marbin Lester MD /nt
--- NOTE | 2020-02-21 11:03 | NUR ---
PT TIME OF 713. PRONOUNCED BY MYSELF AND LUCI KING RN. BODY TRANSPORTED BY SECURITY TO BE PICKED UP BY [facility] G[facility] BODY PROGRAM. FAMILY HAS BEEN UPDATED. WE[facility] GIFT BODY PROGRAM. DR GRECO IS AWARE.
--- NOTE | 2020-02-23 15:07 | HC ---
[facility] [place] [address] CONSULTATION Name: RAGHU PRAKASH Room #: 247-P [facility] IN ..#: [id number] Admission: 02/12/20 Attend Phys: Sheila Yañez MD Discharge: 02/21/20 Date of : 45 Report #: [id number] THIS REPORT FOR: cc: Carlos Manuel Sierra MD, Mark A. MD Dunfield, Jay A. MD ~ DATE OF SERVICE: 02/12/2020 REASON FOR CONSULTATION: Left neck mass. HISTORY OF PRESENT ILLNESS: The patient presented to the Emergency Department today with continued complaint of sore throat and intermittent dysphagia. He had presented 3 days prior with a similar complaint. In discussion with the patient, he says he has had fullness in the neck and sore or irritated throat for several months. He does not feel that has progressed nor has improved. He is denying any changes to his voice, throat clearing, reflux, excessive postnasal discharge, otalgia, trismus, or limitation on neck movement. He denies feeling sick. He has noted that the dysphagia has progressed from pills to pills and some soft foods. Upon presentation on the , he had laboratory test performed, which really were not too unremarkable. No other studies were performed at that time. The patient does volunteer to excessive use of tobacco and alcohol products for a long period of time. He is a resident of [facility]. History is taken mainly from the patient who was felt to be mildly reliable. CT scan was performed by emergency physician. He noted there was a large left parapharyngeal mass. I reviewed this with Dr. York from Radiology who agreed this as more of the appearance of a malignancy. PAST HISTORY: Notable for diabetes, early dementia and hypertension. It should be noted he denies any previous surgical history. CURRENT MEDICATIONS: Noted on the chart include metformin, Seroquel, Lipitor, Zestril, mirtazapine and Keflex, the latter just started several days ago. ALLERGIES TO MEDICATION: None. REVIEW OF SYSTEMS: Negative for any constitutional symptomatology. Of note, he denies any changes in weight, but does notice a change in appetite. RESPIRATORY: Denies any coughing or voice changes. Denies any dyspnea on exertion. CV, GI, , all negative. PHYSICAL EXAMINATION: Somewhat anxious gentleman pacing in his ED exam room. His saturations on room air normal. He does not appear to be in respiratory distress. He is handling secretions well without difficulty. His voice sounds [facility] [address] [place] [address] CONSULTATION Name: RAGHU PRAKASH Room #: 247-P [facility] IN M.R.#: [id number] Admission: 02/12/20 Attend Phys: Sheila Yañez MD Discharge: 02/21/20 Date of : 45 Report #: [id number] normal. Examination of the ears is unremarkable. Nasal passages show a left-sided nasal septal deviation, nasal mucosa is moist. Oral cavity shows extremely poor dentition, multiple caries. Many teeth eroded down to the roots. Buccal mucosa is normal. Floor of mouth and base of tongue appeared unremarkable. Posterior pharynx reveals some fullness on the left lower oropharynx. Palpation of neck reveals no lymphadenopathy on the right side of the neck. Thyroid cartilage in midline. No erythema of the skin is noted of the neck. He has generalized fullness existing 3 zones 1, 2 and 3 of the left upper neck spreading towards the submental area, but mostly staying in the submental triangle. He would not allow bimanual palpation. This was not ballottable. It is not fluctuant. There is no subcutaneous gas noted. Nasopharyngoscopy was performed. See procedure note. A CT was reviewed by myself in conjunction with Dr. York from Radiology. Multilobulated mass effacing the submandibular gland medially and posteriorly filling a high ___ compartment with an IJ compression pushing on the mid hypopharyngeal wall inferiorly. If does not efface the glottic area itself. IMPRESSION: Left neck mass. This is highly suspicious for malignant lesion and given the duration of presence and lack of other infectious symptoms, this would be the most likely diagnosis. PLAN: Since his airway is intact at this time, he has good control of secretions. We will obtain an ultrasound-guided biopsy of the mass in the morning. If this is definitely malignant then a discussion will be made for potential treatment options one which would likely need include a tracheotomy. If the patient decides to go through further therapy. If fluid is aspirated, may consider doing a local incision and drainage of the mass due to tenuous airway, he would not tolerate a general anesthetic at this time, discussed in detail with the patient, who voices good understanding. We will communicate results to Dr. Sierra as well. PROCEDURE NOTE: After obtaining the patient's verbal consent, Polocaine was placed on a cottonoid and placed in the right naris. After waiting several minutes, it was removed. Flexible laryngoscopy was introduced through the right naris into the nasopharynx and down to the oropharynx, and hypopharynx. The scope was then withdrawn. He tolerated well. FINDINGS: Normal nasal structure, nasal mucosa appears unremarkable. Nasal and pharyngeal mucosa is unremarkable. Oropharyngeal mucosa appears unremarkable. In the upper hypopharynx, there is a ballottable fullness on the left lateral pharyngeal wall, obscuring the left piriform sinus. This was brought up against [facility] [address] [place] [address] CONSULTATION Name: RAGHU PRAKASH Room #: 247-P [facility] IN M.R.#: [id number] Admission: 02/12/20 Attend Phys: Sheila Yañez MD Discharge: 02/21/20 Date of : 45 Report #: [id number] the epiglottis. There appears to be some ulcerations noted on the posterior inferior aspect of this mass. His true vocal cords moved normally. There is no epiglottic edema or glottic edema noted. I could not visualize the postcricoid space, however. <ELECTRONICALLY SIGNED> By: Sorin Cruz MD 02/23/20 1507 1804 0001 Sorin Cruz MD /nt
--- NOTE | 2020-02-23 15:08 | O ---
[facility] [place] [address] OPERATIVE REPORT Name: RAGHU PRAKASH Room #: 247-P [facility] IN M.R.#: [id number] Admission: 02/12/20 Attend Phys: Sheila Yañez MD Discharge: 02/21/20 Date of : 45 Report #: [id number] THIS REPORT FOR: cc: Carlos Manuel Sierra MD, Mark A. MD Dunfield, Jay A. MD ~ CC: Carlos Manuel Yañez DATE OF SERVICE: 02/14/2020 PREOPERATIVE DIAGNOSIS: Neck swelling, possible neck abscess. POSTOPERATIVE DIAGNOSIS: Large parapharyngeal space abscess. PROCEDURES: 1. Incision and drainage of neck abscess. 2. Tracheostomy. SURGEON: Sorin Cruz MD ANESTHESIA: Local MAC. FINDINGS: Purulent fluid was noted in the parapharyngeal space. It was pushing the left submandibular gland medially and anteriorly. The vascular sheath was laterally displaced. This did not appear to go retroesophageal. TECHNIQUE: After obtaining consent from his DPOA, he was brought to the operating room and placed in a slight hyperextension with a neck pillow. The neck was prepped and draped in usual sterile fashion, 6 mL of 1% Xylocaine 1:100,000 epinephrine was then injected along and anticipated diagonal incision line on the anterior border of the anticipated left SCM. Sharp incision was made through skin, subcutaneous fat and platysma. Edematous subplatysmal fatty fibrous tissue was encountered. Landmarks were somewhat obscured due to the edema. I did come across the external jugular, it was divided with the LigaSure. I then identified the posterior border of the left submandibular gland much further anteriorly and laterally than expected. I followed along the inferior border dividing branches of the facial vein and then sweep towards the anterior border and then superiorly. I was then able to roll the gland slightly up and held it along the gastric. I then with a large curved hemostat entered into a fibrous edematous sheath where I immediately came across some purulent material under significant pressure. This was thoroughly suctioned out and cultures were obtained of this drainage and sent for aerobic, anaerobic, Gram stain, culture and sensitivity. I then enlarged the opening to approximately 4 cm. The area was then thoroughly irrigated with half liter of bacitracin. I was unable to inspect the abscess cavity, did not see any devitalized tissue [address] [address] OPERATIVE REPORT Name: RAGHU PRAKASH Room #: 247-P [facility] IN .R.#: [id number] Admission: 02/12/20 Attend Phys: Sheila Yañez MD Discharge: 02/21/20 Date of : 45 Report #: [id number] within that area. A large Zack drain was then placed throughout the cavity and brought out through the skin incision. The platysma was closed with 4-0 chromic suture loosely and the skin was loosely closed with 4-0 black nylon. The drain was secured with 2-0 silk and 4-0 nylon to the skin and the platysma. Due to the findings of the large abscess cavity and concerns for continued airway issues, a tracheotomy was then performed. A horizontal incision was made through skin in the midline just above the cricoid prominence. This was carried down through fatty tissue to platysma. The midline raphe was identified and was found to be more to the right than anticipated, but was consistent with the CT scan showing a rightward tracheal deviation. After dividing the strap muscles of all this inferiorly and divided thyroid isthmus with the LigaSure. The trachea had a significant downward course to wear the cricoid cartilage was nearly at the level of the clavicle heads. I was unable to place a cricoid can bring the trachea up into the surgical wound where an incision was made between rings 1 and 2 and then carried inferiorly. This flap was then secured to the skin with 2-0 chromic suture. A 6-0 cuffed endotracheal tube was placed through this area and hooked up to the ventilator where return volumes were confirmed. The cuff was inflated. The trachea dressing was then applied, a Surgicel was packed around the area. The neck wound was then dressed. He was then taken to the ICU in stable condition. ESTIMATED BLOOD LOSS: 25 mL. Pus removed was probably 10-15 mL. <ELECTRONICALLY SIGNED> By: Sorin Cruz MD 02/23/20 1508 39 12 Sorin Cruz MD /nt
== END 2020-02-21 09:15 | DRG 3 ==
LOC: ER 12:44 → EROBS 17:24 → 4W 17:24 → ICU 17:24 → 4W 18:17 → 2N 02-14 06:50 → ICU 02-14 20:11
PROVIDERS: Hospitalist; Internal Medicine Hematology & Oncology; Internal Medicine Nephrology; Internal Medicine Pulmonary Disease; Nurse Practitioner; Pediatrics; ADMIT Internal Medicine; ATTEND Internal Medicine
PROC: 0K9 Muscles, Drainage (ICD-10-PCS; principal; 2020-02-13)
PROC: 5A1955Z Respiratory Ventilation, Greater than 96 Consecutive Hours (ICD-10-PCS; 2020-02-14)
PROC: 0B110F4 Bypass Trachea to Cutaneous with Tracheostomy Device, Open Approach (ICD-10-PCS; 2020-02-14)
PROC: 0C9M00Z Drainage of Pharynx with Drainage Device, Open Approach (ICD-10-PCS; 2020-02-14)
PROC: 5A09357 Assistance with Respiratory Ventilation, Less than 24 Consecutive Hours, Continuous Positive Airway Pressure (ICD-10-PCS; 2020-02-14)
PROC: 02HV33Z Insertion of Infusion Device into Superior Vena Cava, Percutaneous Approach (ICD-10-PCS; 2020-02-15)
PROC: B548ZZA Ultrasonography of Superior Vena Cava, Guidance (ICD-10-PCS; 2020-02-15)
DX: A41.9 Sepsis, unspecified organism (principal); E43 Unspecified severe protein-calorie malnutrition; J96.21 Acute and chronic respiratory failure with hypoxia; J96.22 Acute and chronic respiratory failure with hypercapnia; J18.9 Pneumonia, unspecified organism; N17.0 Acute kidney failure with tubular necrosis; J39.0 Retropharyngeal and parapharyngeal abscess; L02.11 Cutaneous abscess of neck; E87.0 Hyperosmolality and hypernatremia; I47.2 Ventricular tachycardia; J44.0 Chronic obstructive pulmonary disease with (acute) lower respiratory infection; R22.1 Localized swelling, mass and lump, neck; R63.4 Abnormal weight loss; R13.19 Other dysphagia; E11.9 Type 2 diabetes mellitus without complications; I10 Essential (primary) hypertension; F03.90 Unspecified dementia, unspecified severity, without behavioral disturbance, psychotic disturbance, mood disturbance, and anxiety; F10.20 Alcohol dependence, uncomplicated; I95.9 Hypotension, unspecified; T50.8X5A Adverse effect of diagnostic agents, initial encounter; I35.0 Nonrheumatic aortic (valve) stenosis; R41.0 Disorientation, unspecified; Z51.5 Encounter for palliative care; Z66 Do not resuscitate; K02.9 Dental caries, unspecified; E78.5 Hyperlipidemia, unspecified; D64.9 Anemia, unspecified; Z20.828 Contact with and (suspected) exposure to other viral communicable diseases; Z71.6 Tobacco abuse counseling; Z71.41 Alcohol abuse counseling and surveillance of alcoholic; Z88.8 Allergy status to other drugs, medicaments and biological substances; Y92.89 Other specified places as the place of occurrence of the external cause; Z79.899 Other long term (current) drug therapy
CPT/HCPCS: 10045; 10047; 10204; 27000; 50101; 50386; 50398; 50517; 50942; 56524; 56525; 56526; 62110; 62850